=== PATIENT | male | born 1985 | race Caucasian/White ===

== ENCOUNTER 2024-12-09 10:00 | Emergency (ER) | payer OTHER, SELFPAY ==
[2024-12-09 10:02] VITALS: BP 148/103
--- NOTE | 2024-12-09 11:39 | ED.GENMED ---
History of Present Illness
General
Chief Complaint: Crisis Evaluation
Source: patient and family
Time Seen by Provider: 12/09/24 11:11
History of Present Illness
History of Present Illness:
39-year-old male with past medical history of depression and OCD presenting to the ER from home with parents for evaluation of increased depression, possible hallucinations and behavioral disturbance that has been ongoing for an extended period of
time. Family reports that patient was recently admitted at [facility] for few days due to these hallucinations with workup including labs and MRI imaging and with no etiologies found, started on a medication but due to continued symptoms family
brought patient here for further evaluation. Triage states that patient has felt suicidal at times since July but patient is currently denying suicidal ideation to me. Patient continually discussing needing to use the bathroom and feeling as
if he is unable to shower himself over the last few days but is otherwise denying any specific physical concerns. Patient denying any homicidal ideation, auditory or visual hallucination, substance use.
Past History
Past History
ED Past Medical History: Psychiatric
ED Past Surgical History: Orthopedic
Social History
Tobacco: Non-smoker
Alcohol: None
Drug: None
Personal: Single
Living: with family
Review of Systems
Review of Systems
All Other Systems: ROS reviewed and negative except as documented in HPI and ROS
Phy Exam
Physical Exam
Physical Exam:
GENERAL: Alert , in no apparent distress
EYE: conjunctiva clear
Head: Normocephalic atraumatic
NECK: Supple,
ENT: mmm.
LUNGS: no acute respiratory distress
NEUROLOGICAL: Alert and oriented
SKIN: Warm and dry, skin intact.
MUSCULOSKELETAL: well perfused.
PSYCH: Odd affect but otherwise answering questions appropriately
Scores
Heart Failure Risk
Heart Failure Risk Score: Not Applicable
Heart Score for Chest Pain Patients
STEMI patient?: Not applicable
Withdrawal Assessment of Alcohol
Withdrawal Assessment Completed?: Not applicable
Course
Orders/Labs/Results
Orders:
Orders
12/09/24 10:07
Crisis Consult Urgent
Reason for Consult: SI
12/09/24 11:21
Drug Screen, Urine [Urine Drug Abuse Screen] Urgent
12/09/24 11:22
observation [ED Special Safety Observation] ONCE
Observation level: One to Two
12/09/24 11:44
Complete Blood Count/With Diff Urgent
Comprehensive Metabolic Panel Urgent
Abnormal Lab Results
12/09/24
11:44
MCH 31.3 H pg
(27.0-31.0)
MPV 11.2 H fL
(7.4-10.4)
12/09/24 11:44
12/09/24 11:44
Vital Signs
Initial and Last Documented VS:
Initial Vital Signs
Temp Pulse Resp BP Pulse Ox
98.2 F 90 18 148/103 100
12/09/24 10:02 12/09/24 10:02 12/09/24 10:02 12/09/24 10:02 12/09/24 10:02
Last Documented Vital Signs
Temp Pulse Resp BP Pulse Ox
98.2 F 90 16 148/103 100
12/09/24 10:02 12/09/24 10:02 12/09/24 16:00 12/09/24 10:02 12/09/24 10:02
MDM/Problems Addressed
Differential Diagnosis Includes:
OCD, depression/anxiety, patient denying current suicidal ideation, overall minimal concern for any acute emergent physical pathology
MDM/Problems Addressed:
39-year-old male presenting to the emergency department for evaluation of reported intermittent suicidal ideations, patient denying any suicidal ideations to me however family is concerned for possible hallucinations/abnormal behavior over the last
few months. Recently hospitalized at [facility], unclear as to what the exact workup was, reports was just discharged yesterday. Attempting to obtain records from [facility] to better assess as to what testing was exactly done. Given his reports
of possible suicidal ideation we will plan for crisis/psych evaluation. Labs ordered. Disposition pending.
Chronic conditions affecting care: Psychiatric illness
*Pulse Oximetry
Patient hypoxic: no
*Critical Care Note
Total Time (30-74mins, 75-104mins- exclusive of procedures): Not Applicable
Data Reviewed
Review of Other/Old Records Reveals: Records and Discharge Summary
Patient Management
Escalation/DeEscalation of care consider admission/obs:
Patient to be dispositioned to [facility] per crisis. Patient has remained stable in the ER.
ED Attending Note
-
Portions of this chart may have been created with voice recognition software.� Occasional wrong word or��sound alike� substitutions may have occurred due to the inherent limitations of voice recognition software.
Discharge Plan
Departure
Patient Disposition: Psych Facility
Date of Disposition: 12/09/24
Time of Disposition: 15:06
Discharge Problem:
Depression
Interventions
Interventions:
*Risk Screen - Suicide Last Done: 12/09/24 10:02
*General Assessment Last Done: 12/09/24 10:02
*Neglect/Abuse Screening Last Done: 12/09/24 10:02
*ED- Fall Risk Assessment Last Done: 12/09/24 13:20
*ED COVID-19 Vaccine History Last Done: 12/09/24 10:02
ED-Psychological Assessment Last Done: 12/09/24 11:25
Discharge Date and Time
Print Language: SOMALI
[2024-12-09 11:54] LABS: % Basophils 0.4 % (0-2); % Eosinophils 0.4 % (0-6); % Immature Granulocytes 0.2 % (0-0.5); % Lymphocytes 24.2 % (20.5-51.1); % Monocytes 6.6 % (1.7-9.3); % Neutrophils 68.2 % (42.2-75.2); Absolute Lymphocytes 1.3 10^3/uL (1.2-3.4); Absolute Monocytes 0.4 10^3/uL (0.1-0.6); Absolute Neutrophils 3.7 10^3/uL (1.4-6.5); Hematocrit 42.8 % (39.0-52.0); Hemoglobin 15.5 g/dL (13.0-18.0); Mean Corp Hgb Conc. 36.2 g/dL (33.0-37.0); Mean Corpuscular Hgb 31.3 pg (27.0-31.0); Mean Corpuscular Volume 86.5 fL (80.0-94.0); Mean Platelet Volume 11.2 fL (7.4-10.4); Nucleated Red Blood Cells % 0 % (-); Platelet Count 142 10^3/uL (130-400); Red Blood Cell Count 4.95 10^6/uL (4.70-6.10); Red Cell Dist. Width 11.9 % (11.5-14.5); White Blood Cell Count 5.4 10^3/uL (4.8-10.8)
[2024-12-09 12:06] LABS: ALT (SGPT) 20 U/L (0-50); AST (SGOT) 21 U/L (17-59); Albumin 4.8 g/dl (3.5-5.0); Alkaline Phosphatase 63 U/L (38-126); Blood Urea Nitrogen 16 mg/dl (9-20); Calcium 9.7 mg/dl (8.4-10.2); Carbon Dioxide 27 mmol/L (22-30); Chloride 102 mmol/L (98-107); Glucose 81 mg/dl (70-99); Potassium 4.4 mmol/L (3.5-5.1); Sodium 143 mmol/L (135-145); Total Bilirubin 0.9 mg/dl (0.2-1.3); Total Protein 7.4 g/dl (6.3-8.2); eGFR > 60.00
--- NOTE | 2024-12-09 19:33 | ED.CRISIS ---
ED Crisis Note
ED Crisis Note
Subjective:
Patient agitated trying to leave, came in today states he was suicidal after the election on exam he looks unkept disheveled disorganized
Objective:
Agitation suicide
Assessment/Plan:
Excepted to psychiatric hospital according to crisis will give a dose of Zyprexa
[2024-12-09] MEDS: ZYPREXA 5 MG IM (19:37)
[2024-12-09 19:41] VITALS: BP 158/98
== END 2024-12-09 20:15 ==
LOC: EMR 10:00
PROVIDERS: Physician Assistant Medical; EMERGENCY PHYSICIAN Emergency Medicine
DX: F32.A Depression, unspecified (principal); F42.9 Obsessive-compulsive disorder, unspecified
CPT/HCPCS: 99283; 96372; 80053; 85025; J2358